=== PATIENT | female | born 2000 | race Caucasian/White ===

== ENCOUNTER 2019-04-09 07:49 | Emergency (ER) | payer SELFPAY ==
[2019-04-09 07:50] VITALS: BP 125/88; PULSE 70; RESP 18; TEMP 36.8; O2SAT 100
--- NOTE | 2019-04-09 07:53 | ED.ALLEREA ---
HPI - Allergic Reaction General Chief complaint: Skin/Abscess/Foreign Body Stated complaint: allergic reaction to meds/mrsa cyst Time Seen by Provider: 04/09/19 07:52 Source: patient Mode of arrival: ambulatory Limitations: no limitations History of Present Illness HPI narrative: Patient is a 18-year-old female. She states she has had multiple skin abscesses in the past. She states that she has had multiple I and D's in the past. She states that it has been cultured and it is positive for MRSA. She is here because she has a lesion on her forehead. She stated that on Thursday of this week she was given a prescription for Bactrim by another facility. She has been on Bactrim in the past. She states she woke up this morning and had swelling on the left side of her forehead and down into her left eye. She was concerned that potentially she is having a reaction to the Bactrim. She also states that she has been on MRSA eradication regimens in the past. She does use mupirocin. Has also done bleach baths. She does not have a primary care doctor. She does not have medical insurance. Related Data Previous Rx's Medication Instructions Recorded doxycycline hyclate 100 mg PO BID 5 Days #10 tab 04/09/19 Allergies Allergy/AdvReac Type Severity Reaction Status Date / Time Pertussis Vaccines Allergy Mild Verified 04/09/19 07:58 [PERTUSSIS VACCINES] Review of Systems Constitutional Denies fatigue and Denies headache(s) Eyes Comments: Swelling over the left eye ENT Ears, Nose, Mouth, and Throat: Denies headache(s) Cardiovascular Denies chest pain and Denies dyspnea Respiratory Denies dyspnea Gastrointestinal Gastrointestinal: Denies abdominal pain Integumentary/Breasts Reports rash (Left forehead) Neurologic Denies behavioral changes and Denies headache(s) Psychiatric Denies behavioral changes Endocrine Denies fatigue Hematologic/Lymphatic Denies easy bleeding and Denies easy bruising PFSH Medical History MRSA (methicillin resistant staph aureus) culture positive (Acute) Social History Smoking Status: Former smoker Social History Smoking Status: Former smoker Exam Initial Vital Signs Initial Vital Signs: Vital Signs Temperature 98.3 F 06/15/19 07:50 Pulse Rate 70 04/09/19 07:50 Respiratory Rate 18 04/09/19 07:50 Blood Pressure 125/88 04/09/19 07:50 Pulse Oximetry 100 04/09/19 07:50 Const General: cooperative, well developed, well groomed and No acute distress Orientation: alert and awake [facility] Head: other (Swelling to left forehead) Eyes Other: Left eye unremarkable. Does have some mild swelling of the left upper eyelid. Resp Effort & Inspection: normal respiratory effort Cardio Rate: regular rate Skin Other: Patient with a 1/2 cm white abscess to the left forehead. Has minimal surrounding erythema. Does have swelling of the left side of the forehead that extends past midline and down to the upper eyelid. Neuro General: alert and awake Cognition: normal cognition Speech: speech normal Extrem General: capillary refill normal Procedures Abscess I/D Site: face Side (if applicable): left Local Anesthetic: lidocaine 1% and with bicarb Amount of anesthesia used (mL): 2 Technique: incised with #11 blade Irrigation: No Packing used?: none Course Vital Signs - 8 hr 04/09/19 07:50 Temperature 98.3 F Pulse Rate 70 Respiratory Rate 18 Blood Pressure 125/88 Pulse Oximetry 100 MDM - Allergic Reaction MDM Narrative Medical decision making narrative: Patient does have a small area of an abscess on her left forehead which was I&D. Patient has had this done multiple times in the past. Informed her that there would most likely be a scar over this area. She does have swelling on the left side of her forehead. I suspect this is secondary to the infection not an allergic reaction to the Bactrim. She has been on this medication in the past. Informed her to continue with the Bactrim. We discussed return precautions and follow-up instructions with regard to the I and D. she was given a prescription for doxycycline. Since this infection is on her face and she is having some swelling informed her that if her symptoms do not start to improve over the next couple days that she should stop taking the Bactrim and start taking the doxycycline. She was given the phone number for the health complex human resources manager here at the hospital to help with finding a primary provider. She is already on a read occasion treatment for MRSA. Both her and family expressed understanding and agreement with plan. Discharge Plan Departure Patient Disposition: Home Clinical Impression: Abscess of skin or subcutaneous tissue Qualifiers: Site of cutaneous abscess: face Qualified Code(s): L02.01 - Cutaneous abscess of face Instructions: DI for Skin Abscess, DI for Incision and Drainage Activity Restrictions/Additional Instructions: I do recommend that you continue with the antibiotic that your currently taking. Hold on filling the prescription you were given today for the time being. If your symptoms worsen over the next couple days please stop taking your current antibiotic and fill this prescription and start taking it as directed. On Thursday you can call the Health resources coordinator at [phone]. Return to the emergency department for any new or worsening symptoms Prescriptions: New doxycycline hyclate 100 mg tablet 100 mg PO BID 5 Days Qty: 10 RF: 0
== END 2019-04-09 08:31 | disposition home or self-care (01) ==
PROVIDERS: Emergency Provider Emergency Medicine
DX: L02.01 Cutaneous abscess of face (principal)
CPT/HCPCS: 10060; 99282; 99283

== ENCOUNTER 2020-05-30 15:58 | Emergency (ER) | payer SELFPAY ==
[2020-05-30] VITALS (8 sets, daily range): BP systolic 101–118; BP diastolic 57–66; PULSE 59–94; RESP 16; TEMP 37.3–37.7; O2SAT 97–98; BMI 26.6
[2020-05-30 17:04] LABS: Add Manual Diff / Slide Review NO; Basophils Absolute Auto 100 /uL (0-100); Basophils Percent Auto 0.4 % (0-2); Eosinophils Absolute Auto 100 /uL (0-450); Eosinophils Percent Auto 1.1 % (2-4); Hematocrit 40.8 % (36-46); Hemoglobin 13.8 g/dL (12.0-16.0); Lymphocytes Absolute Auto 1100 /uL (1100-4500); Lymphocytes Percent Auto 8.6 % (25-40); Mean Corpuscular HGB Conc 33.9 % (30-36); Mean Corpuscular Hemoglobin 32.3 PG (26-34); Mean Corpuscular Volume 95.5 fL (80-100); Monocytes Absolute Auto 600 /uL (0-900); Monocytes Percent Auto 4.9 % (3-14); Neutrophils Absolute Auto 11000 /uL (1500-7000); Platelet Count 319 X10^3/uL (150-400); Red Blood Cell Count 4.27 X10^6/uL (4.0-5.2); Red Cell Distribution Width 13.1 % (11.6-14.8)
[2020-05-30] MEDS: SODIUM CHLORIDE 0.9% 1,000 ML 1000 ML IV (17:08)
[2020-05-30] MEDS: KETOROLAC 60 MG/2 ML VIAL 15 MG IV (17:08)
[2020-05-30] MEDS: ACETAMINOPHEN 325 MG TABLET 650 MG PO (17:09)
[2020-05-30 17:23] LABS: Lactate (Lactic Acid) 2.1 mmol/L (0.7-2.1)
[2020-05-30 17:24] LABS: Alanine Aminotransferase 22 IU/L (<35); Albumin 4.2 g/dL (3.5-5.0); Albumin Globulin Ratio 1.6 (1.0-2.8); Alkaline Phosphatase 38 U/L (38-126); Aspartate Aminotransferase 35 IU/L (14-36); BUN Creatinine Ratio 15.7 (6-22); Bilirubin Total 0.6 mg/dL (0.2-1.3); Blood Urea Nitrogen 11 mg/dL (7-17); Carbon Dioxide 24 mmol/L (22-32); Chloride 101 mmol/L (98-107); Estimated Glomerular Filt Rate > 60.0 mL/min (>60); Globulin 2.6 g/dL (1.7-4.1); Glucose 106 mg/dL (70-100); HEMOLYSIS 50 (0-50); Lipase 33 U/L (23-300); Potassium 3.8 mmol/L (3.4-5.1); Sodium 135 mmol/L (137-145); Total Protein 6.8 g/dL (6.3-8.2)
--- NOTE | 2020-05-30 17:25 | ED_ITS ---
HPI - Abdominal Pain <[facility] [place] [facility] - Last Filed: 05/30/20 22:24> General Chief Complaint: Abdominal Pain Stated Complaint: vomiting blood and stomach acid Time Seen by Provider: 05/30/20 16:43 Source: patient Mode of arrival: Ambulatory Limitations: no limitations History of Present Illness HPI narrative: This is a 19-year-old female, smoker, who had taken misoprostol on Thursday as an elective [facility] with a friend with chief complain of right upper and right lower quadrant pain with nausea and vomiting and elevated temperature with Tmax of 100 at home. This is and she about about 7.5 week EGA. Patient reports nausea started last night and had about 4 episodes of vomiting with mostly bile and small amount of blood. She had taken Zofran 4 mg ODT before coming into ED. patient reports has been passing clots and tissue like material since the misoprostol and has been changing Stacy pad as about every 2 hours. Patient reports pain is 5 to 6/10 and at home she almost passed out because pain was so bad. Patient reports she feels very dehydrated. Patient denies urinary symptoms such as urgency, frequency, dysuria. Patient denies chest pain, breathing difficulty. Related Data Previous Rx's Medication Instructions Recorded cephalexin [Keflex] 500 mg PO BID 7 Days #14 cap 05/30/20 ondansetron 4 mg PO Q6-8H PRN #10 tab 05/30/20 Allergies Allergy/AdvReac Type Severity Reaction Status Date / Time Pertussis Vaccines Allergy Mild Verified 04/09/19 07:58 [PERTUSSIS VACCINES] Review of Systems <[facility] [place] [facility] - Last Filed: 05/30/20 22:24> Review of Systems Narrative: General: See HPI HEENT: Denies sinus pain, ear pain, sore throat, difficulty swallowing, dizziness. Respiratory: Denies dyspnea, cough, wheezing, hemoptysis, sputum. Cardiovascular: Denies chest pain, palpitations, orthopnea, edema. Gastrointestinal: See HPI : See HPI Musculoskeletal: Denies weakness, joint pain or bony pain. Skin: Denies rash, skin lesions, or other. Neurologic: Denies weakness, headache, numbness, change in speech, confusion, seizures, incoordination. Psychiatric: No concerning psychosocial issues. 12-point review of systems is negative except for those stated above. Patient History <BERENICE Thorpe - Last Filed: 05/30/20 22:24> Medical History MRSA (methicillin resistant staph aureus) culture positive (Acute) Surgical History S/P laparoscopic procedure (Acute) Social History (Updated 05/30/20 @ 17:39 by BERENICE Thorpe) Smoking Status: Current every day smoker substance use type: marijuana Substance Use Type: does not use Exam <BERENICE Thorpe - Last Filed: 05/30/20 22:24> Narrative Exam Narrative: GEN: Alert, oriented x 3, well appearing and nourished, and in no acute distress. Head: Normal cephalic, atraumatic. No scalp or temporal tenderness, palpable mass or rash. EYES: Pupils are equal, round, and reactive to light and accommodation. Extraocular muscles are intact bilaterally. There is no subconjunctival hemorrhage, exudate and sclera non-icteric. ENT: Hearing grossly intact. Nose without bleeding, purulent discharge or deviation. Mucous membrane dry, no mucosal lesion. Throat without erythema, tonsillar hypertrophy or exudate. Uvula in midline, airway patent. Neck: Trachea in midline. No JVD, non-tender without lymphadenopathy. No masses or thyroid megaly. Supple, non-tender and no meningeal signs. CARDIAC: Normal regular rate and rhythm without murmurs, gallops, or rubs. No chest wall tenderness. No peripheral edema, cyanosis or pallor. Capillary refill is less than 2 seconds. RESPIRATORY: Lungs are clear to auscultate bilaterally. No cough, wheezes, rales, or rhonchi. No stridor, respiratory distress, increase work of breathing, or accessary muscle used. ABD: Abdomen soft and non-distended. Mild tenderness to palpate in right lower quadrant. No Payton's sign. No guarding or rebound tenderness to palpate. Bowel sounds are normal in all 4 quadrants. There is no palpable masses or organomegaly. EXT: Full painless ROM of all extremities with no loss of sensation, strength, effusion or edema. SKIN: Warm, dry, normal color for patient. No erythema, lesions or rash over visible areas. BACK: Nontender without deformity or crepitance. No flank tenderness. NEUROLOGICAL: Alert and oriented to place, time and person. Sensation and motor function intact bilaterally. No facial droops, dysphasia. PSYCHIATRIC: Good judgement and reason, without hallucinations, abnormal affect or abnormal behaviors during the examination. Initial Vital Signs Initial Vital Signs: Vital Signs Temperature 99.9 F H 05/30/20 16:17 Pulse Rate 94 H 05/30/20 16:17 Respiratory Rate 16 05/30/20 16:17 Blood Pressure 118/61 05/30/20 16:17 Pulse Oximetry 97 05/30/20 16:17 External Female Exam: normal external appearance and normal appearance of the urethra Speculum Exam - Vagina: normal appearance of the vagina, no lacerations, no lesions, vaginal bleeding and nontender Speculum Exam - Cervix: normal appearance of the cervix, cervical os open (maroo n color blood mostly w/o clots), no masses and nontender Bimanual Exam- Vagina & Uterus: normal bimanual exam, No tender and non-tender Bimanual Exam- Adnexa, other: no masses OB/External & Speculum: cervical os open (maroon color blood mostly w/o clots) and vaginal bleeding <Regi Nobles MD - Last Filed: 05/31/20 01:16> Initial Vital Signs Initial Vital Signs: Vital Signs Temperature 99.9 F H 05/30/20 16:17 Pulse Rate 94 H 05/30/20 16:17 Respiratory Rate 16 05/30/20 16:17 Blood Pressure 118/61 05/30/20 16:17 Pulse Oximetry 97 05/30/20 16:17 Scores <GAUTAM ThorpeP - Last Filed: 05/30/20 22:24> GCS Adams coma scale eye opening: Spontaneous Adams coma scale verbal response: Orientated Adams coma scale motor response: Obey commands Adriane coma scale total score: 15 qSOFA Altered Mental Status (GCS <15): No Respiratory rate greater than/equal to 22: No Systolic blood pressure less than or equal to 100: No qSOFA Total: 0 0-1 Not High Risk 1-3 High risk Course <GAUTAM ThorpeP - Last Filed: 05/30/20 22:24> Orders Ordered: ED Orders 05/30/20 17:28 US pelvic complete Stat 05/30/20 17:35 Urinalysis and Microscopic Stat Urine Culture Stat Discontinued Medications Acetaminophen (Tylenol) 650 mg PO NOW ONE Stop: 05/30/20 16:57 Last Admin: 05/30/20 17:09 Dose: 650 mg Documented by: ELDON Sodium Chloride (Normal Saline 0.9%) 1,000 mls @ 1,000 mls/hr IV BOLUS ONE Stop: 05/30/20 17:55 Last Infusion: 05/30/20 18:42 Dose: 0 mls/hr Documented by: Admin: 05/30/20 17:08 Dose: 1,000 mls/hr Documented by: ELDON Ketorolac Tromethamine (Toradol) 15 mg IV NOW ONE Stop: 05/30/20 16:57 Last Admin: 05/30/20 17:08 Dose: 15 mg Documented by: ELDON Ondansetron HCl (Zofran) 4 mg IV NOW ONE Stop: 05/30/20 17:13 Last Admin: 05/30/20 17:34 Dose: 4 mg Documented by: ELDON Pantoprazole Sodium (Protonix) 40 mg IV NOW ONE Stop: 05/30/20 17:12 Last Admin: 05/30/20 17:34 Dose: 40 mg Documented by: ELDON Reevaluation(s) Reevaluation #1: The patient reports pain and nausea much improved. Time: 18:45 Consultations Consultation #1: Dr. Nobles staffed with the patient on physical finding, labs and US test result. Time: 19:45 Vital Signs Vital signs: Vital Signs - 8 hr 05/30/20 17:21 05/30/20 17:30 05/30/20 18:00 Temperature Pulse Rate 78 76 70 Blood Pressure 108/61 111/63 Pulse Oximetry 98 97 98 05/30/20 18:30 05/30/20 18:31 05/30/20 19:00 Temperature Pulse Rate 66 82 59 L Blood Pressure 101/57 L 105/66 Pulse Oximetry 97 97 98 05/30/20 19:20 Temperature 99.2 F Pulse Rate Blood Pressure Pulse Oximetry <Regi Nobles MD - Last Filed: 05/31/20 01:16> Orders Ordered: ED Orders 05/30/20 17:28 US pelvic complete Stat 05/30/20 17:35 Urinalysis and Microscopic Stat Urine Culture Stat Discontinued Medications Acetaminophen (Tylenol) 650 mg PO NOW ONE Stop: 05/30/20 16:57 Last Admin: 05/30/20 17:09 Dose: 650 mg Documented by: ELDON Sodium Chloride (Normal Saline 0.9%) 1,000 mls @ 1,000 mls/hr IV BOLUS ONE Stop: 05/30/20 17:55 Last Infusion: 05/30/20 18:42 Dose: 0 mls/hr Documented by: Admin: 05/30/20 17:08 Dose: 1,000 mls/hr Documented by: ELDON Ketorolac Tromethamine (Toradol) 15 mg IV NOW ONE Stop: 05/30/20 16:57 Last Admin: 05/30/20 17:08 Dose: 15 mg Documented by: ELDON Ondansetron HCl (Zofran) 4 mg IV NOW ONE Stop: 05/30/20 17:13 Last Admin: 05/30/20 17:34 Dose: 4 mg Documented by: ELDON Pantoprazole Sodium (Protonix) 40 mg IV NOW ONE Stop: 05/30/20 17:12 Last Admin: 05/30/20 17:34 Dose: 40 mg Documented by: ELDON Vital Signs Vital signs: Vital Signs - 8 hr 05/30/20 17:21 05/30/20 17:30 05/30/20 18:00 Temperature Pulse Rate 78 76 70 Blood Pressure 108/61 111/63 Pulse Oximetry 98 97 98 05/30/20 18:30 05/30/20 18:31 05/30/20 19:00 Temperature Pulse Rate 66 82 59 L Blood Pressure 101/57 L 105/66 Pulse Oximetry 97 97 98 05/30/20 19:20 Temperature 99.2 F Pulse Rate Blood Pressure Pulse Oximetry MDM - Abdominal Pain <Cameron BERENICE Neal - Last Filed: 05/30/20 22:24> Differential Diagnosis Differential diagnosis: Likely abdominal pain, acute appendicitis and other (Gastritis, Marjorie Hooker tear, pancreatitis, retained product of , sepsis) Medical Records Attestation: I reviewed the patient's medical records. Lab Data Attestation: I reviewed the patient's lab results. Result diagrams: 05/30/20 16:00 05/30/20 16:00 Labs: Lab Results 05/30/20 05/30/20 05/30/20 Range/Units 16:00 16:00 16:00 WBC 13.0 H (4.5-11.0) X10^3/uL RBC 4.27 (4.0-5.2) X10^6/uL Hgb 13.8 (12.0-16.0) g/dL Hct 40.8 (36-46) % MCV 95.5 (80-100) fL MCH 32.3 (26-34) PG MCHC 33.9 (30-36) % RDW 13.1 (11.6-14.8) % Plt Count 319 (150-400) X10^3/uL Neut % (Auto) 85.0 H (50-75) % Lymph % (Auto) 8.6 L (25-40) % Imperial % (Auto) 4.9 (3-14) % Eos % (Auto) 1.1 L (2-4) % Baso % (Auto) 0.4 (0-2) % Neut # (Auto) 36914 H (1368-1691) /uL Lymph # (Auto) 1100 (8253-2433) /uL Imperial # (Auto) 600 (0-900) /uL Eos # (Auto) 100 (0-450) /uL Baso # (Auto) 100 (0-100) /uL Sodium 135 L (137-145) mmol/L Potassium 3.8 (3.4-5.1) mmol/L Chloride 101 (98-107) mmol/L Carbon Dioxide 24 (22-32) mmol/L BUN 11 (7-17) mg/dL Creatinine 0.70 (0.52-1.04) mg/dL Estimated GFR > 60.0 (>60) mL/min BUN/Creatinine Ratio 15.7 (6-22) Glucose 106 H (70-100) mg/dL Lactate (0.7-2.1) mmol/L Calcium 9.0 (8.4-10.2) mg/dL Total Bilirubin 0.6 (0.2-1.3) mg/dL AST 35 (14-36) IU/L ALT 22 (<35) IU/L Alkaline Phosphatase 38 (38-126) U/L Total Protein 6.8 (6.3-8.2) g/dL Albumin 4.2 (3.5-5.0) g/dL Globulin 2.6 (1.7-4.1) g/dL Albumin/Globulin Ratio 1.6 (1.0-2.8) Lipase 33 (23-300) U/L Procalcitonin < 0.05 (<0.5) ng/mL Urine Color Urine Appearance Urine pH (4.5-8.0) Ur Specific Marion (1.000-1.035) Urine Protein (Negative) Urine Glucose (UA) (Negative) g/dL Urine Ketones (NEGATIVE) Urine Occult Blood (Negative) Urine Nitrate (Negative) Urine Bilirubin (NEGATIVE) Urine Urobilinogen (0.2) E.U./dL Ur Leukocyte Esterase (NEGATIVE) Urine RBC (0-5/HPF) Urine WBC (0-5/HPF) Ur Squamous Epith Cells (0-5/HPF) Amorphous Sediment Urine Bacteria (None) Urine Mucus (Negative) Ur Culture Indicated? 05/30/20 05/30/20 Range/Units 16:00 17:35 WBC (4.5-11.0) X10^3/uL RBC (4.0-5.2) X10^6/uL Hgb (12.0-16.0) g/dL Hct (36-46) % MCV (80-100) fL MCH (26-34) PG MCHC (30-36) % RDW (11.6-14.8) % Plt Count (150-400) X10^3/uL Neut % (Auto) (50-75) % Lymph % (Auto) (25-40) % Imperial % (Auto) (3-14) % Eos % (Auto) (2-4) % Baso % (Auto) (0-2) % Neut # (Auto) (9442-5679) /uL Lymph # (Auto) (9879-2299) /uL Imperial # (Auto) (0-900) /uL Eos # (Auto) (0-450) /uL Baso # (Auto) (0-100) /uL Sodium (137-145) mmol/L Potassium (3.4-5.1) mmol/L Chloride (98-107) mmol/L Carbon Dioxide (22-32) mmol/L BUN (7-17) mg/dL Creatinine (0.52-1.04) mg/dL Estimated GFR (>60) mL/min BUN/Creatinine Ratio (6-22) Glucose (70-100) mg/dL Lactate 2.1 (0.7-2.1) mmol/L Calcium (8.4-10.2) mg/dL Total Bilirubin (0.2-1.3) mg/dL AST (14-36) IU/L ALT (<35) IU/L Alkaline Phosphatase (38-126) U/L Total Protein (6.3-8.2) g/dL Albumin (3.5-5.0) g/dL Globulin (1.7-4.1) g/dL Albumin/Globulin Ratio (1.0-2.8) Lipase (23-300) U/L Procalcitonin (<0.5) ng/mL Urine Color Red Urine Appearance Cloudy Urine pH 8.5 H (4.5-8.0) Ur Specific Marion 1.010 (1.000-1.035) Urine Protein 3+ H (Negative) Urine Glucose (UA) Trace H (Negative) g/dL Urine Ketones Negative (NEGATIVE) Urine Occult Blood 3+ H (Negative) Urine Nitrate Positive H (Negative) Urine Bilirubin Negative (NEGATIVE) Urine Urobilinogen 1.0 (0.2) E.U./dL Ur Leukocyte Esterase 2+ H (NEGATIVE) Urine RBC >100/hpf H (0-5/HPF) Urine WBC >100/hpf H (0-5/HPF) Ur Squamous Epith Cells 10-30 /hpf H (0-5/HPF) Amorphous Sediment 2+ Urine Bacteria Many (>30) H (None) Urine Mucus 2+ H (Negative) Ur Culture Indicated? Specimen cultured Imaging Data US-Pelvic: Radiologist's Impression: [address] [address] Ultrasound Report Signed Patient: Gino Cason#: [id number] : 2000Acct:[id number] Age/Sex: 19 / FDate of Service: 05/30/20 Loc: ED Accession Number: [id number] Procedure: US pelvic complete Ordering Provider: Cameron Neal PROCEDURE: US PELVIC COMPLETE INDICATIONS: FEVER/TAKEN MISOPROSTOL THURSDAY/VAGINAL BLEED/CLOTS TECHNIQUE: Real-time scanning was performed of the pelvic organs, with image documentation. Additional endovaginal scanning was necessary due to incomplete visualization of the adnexal and endometrial structures by transabdominal scanning. COMPARISON: [facility], , PELVIC COMPLETE, 08/18/2011, 18:56. FINDINGS: Transabdominal scanning: Limited scanning through the kidneys shows no hydronephrosis. No pathologic free abdominal or pelvic fluid. Endovaginal scanning: Uterus: Uterus measures 9.5 x 4.4 x 5.2 cm. The endometrium is thickened, measuring up to 2.1 cm in combined thickness. The endometrium is heterogeneous in appearance suggestive of internal blood products or clots. Ovaries: The right ovary measures 3.7 x 2.0 x 2.0 cm and the left ovary measures 3.2 x 1.7 x 1.8 cm. There is a thick-walled cyst in the right ovary measuring up to 1.6 cm likely representing a corpus luteal cyst. IMPRESSION: 1. Thickened heterogeneous endometrium suggestive of blood product. 2. Thick walled right ovarian cyst likely representing a corpus luteal cyst. Dictated by: Zaki Rice M.D. on 05/30/2020 at 18:41 Approved by: Zaki Rice M.D. on 05/30/2020 at 18:44 MDM Narrative Medical decision making narrative: This is a 19 year old female who had an elective termination by oral medication misoprostol 3 days ago and she has nausea since last night with vomiting for 4 times small amount of pinkish blood, low abdominal cramping with upper right upper quadrant pain with slightly elevated temperature at home up to 100 F. She has been passing blood, clots, and tissue like substance vaginally. Physical exam was unremarkable. Was soft to palpate without distension, tenderness to palpate, rebound tenderness. Pelvic exam without CC cervical motion tenderness or uterine tenderness. Os is slightly open and expelling mostly bloodly liquid with scant gracious tissue. No blood clots or purulent discharge appreciated. Patient tolerated pelvic exam well. Concerned for uterine infection from retained product of conception and pelvic US test was done. Endometrium was thickened measuring up to 2.1 cm but appears to be heterogeneous in appearance suggestive of internal blood products or clots. Also there is a thick walled cyst in right ovary measuring up to 1.6 cm. WBC count is 13.0 with slightly elevated neutrophil of 85%. qSOFA score was 0. Lactate was within normal of 2.1 (0.7-2.1) and negative procalcitonin indicating sepsis. Given patient had taken misoprostol recently, it is expected that she'll be bleeding for upto 2 weeks. UA test shows positive for urine nitrate and leukocyte esterase 2+ with WBC >100 and many urine bacteria. Urine cultures pending. Source of leukocytosis and mild elevated temperature could be UTI and the patient is treated with Keflex 500 mg b.i.d. 7 day course. Patient was treated with IV fluid, Tylenol, IV Toradol, Pantoprazole and zofran for patient's symptoms which has improved. Patient reports feeling much better shortly after. Findings were discussed with patient and discussed strict return precautions with worsening symptoms [facility] scheduled appointment until next week. Patient verbalized understanding and agreement with the treatment plan. Advised to take [id number] omeprazole to protect stomach with patient takes ibuprofen regularly to help with cramping pain or temperature. <Regi Nobles MD - Last Filed: 05/31/20 01:16> Lab Data Labs: Lab Results 05/30/20 05/30/20 05/30/20 Range/Units 16:00 16:00 16:00 WBC 13.0 H (4.5-11.0) X10^3/uL RBC 4.27 (4.0-5.2) X10^6/uL Hgb 13.8 (12.0-16.0) g/dL Hct 40.8 (36-46) % MCV 95.5 (80-100) fL MCH 32.3 (26-34) PG MCHC 33.9 (30-36) % RDW 13.1 (11.6-14.8) % Plt Count 319 (150-400) X10^3/uL Neut % (Auto) 85.0 H (50-75) % Lymph % (Auto) 8.6 L (25-40) % Imperial % (Auto) 4.9 (3-14) % Eos % (Auto) 1.1 L (2-4) % Baso % (Auto) 0.4 (0-2) % Neut # (Auto) 62303 H (0080-4625) /uL Lymph # (Auto) 1100 (5139-3713) /uL Imperial # (Auto) 600 (0-900) /uL Eos # (Auto) 100 (0-450) /uL Baso # (Auto) 100 (0-100) /uL Sodium 135 L (137-145) mmol/L Potassium 3.8 (3.4-5.1) mmol/L Chloride 101 (98-107) mmol/L Carbon Dioxide 24 (22-32) mmol/L BUN 11 (7-17) mg/dL Creatinine 0.70 (0.52-1.04) mg/dL Estimated GFR > 60.0 (>60) mL/min BUN/Creatinine Ratio 15.7 (6-22) Glucose 106 H (70-100) mg/dL Lactate (0.7-2.1) mmol/L Calcium 9.0 (8.4-10.2) mg/dL Total Bilirubin 0.6 (0.2-1.3) mg/dL AST 35 (14-36) IU/L ALT 22 (<35) IU/L Alkaline Phosphatase 38 (38-126) U/L Total Protein 6.8 (6.3-8.2) g/dL Albumin 4.2 (3.5-5.0) g/dL Globulin 2.6 (1.7-4.1) g/dL Albumin/Globulin Ratio 1.6 (1.0-2.8) Lipase 33 (23-300) U/L Procalcitonin < 0.05 (<0.5) ng/mL Urine Color Urine Appearance Urine pH (4.5-8.0) Ur Specific Marion (1.000-1.035) Urine Protein (Negative) Urine Glucose (UA) (Negative) g/dL Urine Ketones (NEGATIVE) Urine Occult Blood (Negative) Urine Nitrate (Negative) Urine Bilirubin (NEGATIVE) Urine Urobilinogen (0.2) E.U./dL Ur Leukocyte Esterase (NEGATIVE) Urine RBC (0-5/HPF) Urine WBC (0-5/HPF) Ur Squamous Epith Cells (0-5/HPF) Amorphous Sediment Urine Bacteria (None) Urine Mucus (Negative) Ur Culture Indicated? 05/30/20 05/30/20 Range/Units 16:00 17:35 WBC (4.5-11.0) X10^3/uL RBC (4.0-5.2) X10^6/uL Hgb (12.0-16.0) g/dL Hct (36-46) % MCV (80-100) fL MCH (26-34) PG MCHC (30-36) % RDW (11.6-14.8) % Plt Count (150-400) X10^3/uL Neut % (Auto) (50-75) % Lymph % (Auto) (25-40) % Imperial % (Auto) (3-14) % Eos % (Auto) (2-4) % Baso % (Auto) (0-2) % Neut # (Auto) (8418-4588) /uL Lymph # (Auto) (0563-9702) /uL Imperial # (Auto) (0-900) /uL Eos # (Auto) (0-450) /uL Baso # (Auto) (0-100) /uL Sodium (137-145) mmol/L Potassium (3.4-5.1) mmol/L Chloride (98-107) mmol/L Carbon Dioxide (22-32) mmol/L BUN (7-17) mg/dL Creatinine (0.52-1.04) mg/dL Estimated GFR (>60) mL/min BUN/Creatinine Ratio (6-22) Glucose (70-100) mg/dL Lactate 2.1 (0.7-2.1) mmol/L Calcium (8.4-10.2) mg/dL Total Bilirubin (0.2-1.3) mg/dL AST (14-36) IU/L ALT (<35) IU/L Alkaline Phosphatase (38-126) U/L Total Protein (6.3-8.2) g/dL Albumin (3.5-5.0) g/dL Globulin (1.7-4.1) g/dL Albumin/Globulin Ratio (1.0-2.8) Lipase (23-300) U/L Procalcitonin (<0.5) ng/mL Urine Color Red Urine Appearance Cloudy Urine pH 8.5 H (4.5-8.0) Ur Specific Marion 1.010 (1.000-1.035) Urine Protein 3+ H (Negative) Urine Glucose (UA) Trace H (Negative) g/dL Urine Ketones Negative (NEGATIVE) Urine Occult Blood 3+ H (Negative) Urine Nitrate Positive H (Negative) Urine Bilirubin Negative (NEGATIVE) Urine Urobilinogen 1.0 (0.2) E.U./dL Ur Leukocyte Esterase 2+ H (NEGATIVE) Urine RBC >100/hpf H (0-5/HPF) Urine WBC >100/hpf H (0-5/HPF) Ur Squamous Epith Cells 10-30 /hpf H (0-5/HPF) Amorphous Sediment 2+ Urine Bacteria Many (>30) H (None) Urine Mucus 2+ H (Negative) Ur Culture Indicated? Specimen cultured Discharge Plan Departure Patient Disposition: Home Clinical Impression: Miscarriage Nausea & vomiting Qualifiers: Vomiting type: unspecified Vomiting Intractability: non-intractable Qualified Code(s): R11.2 - Nausea with vomiting, unspecified Discharge Date/Time: 05/30/20 20:07 Instructions: DI for Miscarriage, Nausea and Vomiting-Adult Activity Restrictions/Additional Instructions: You have been diagnosed with [abdominal cramping, nausea and vomiting, elective miscarriage after the misoprostol. Slightly elevated WBC to 13. No signs of sepsis per physical and blood tests. It appears to be you have UTI as well. The elevated temperature may related to this. Please start taking antibiotic medication for next 7 days. Urine culture is pending and you will receive a phone call from us if it requires different antibiotic medications.]. What to do: *Take your medications as directed. Take Keflex antibiotic medication twice a day for next 7 days. Zofran as needed for nausea. Hydrate adequately after nausea has improved. Please take [id number] Tylenol and or Motrin as needed for discomfort and fever. Motrin take it with food. This medication has been transmitted to [facility] in [place]. *Follow up with your primary care provider in 2-3 days, call for an appointment. Let them know you were seen in the ED and that we asked you to be seen in follow up. *Return to ED if you have any new, worsening, or concerning symptoms, such as [worsening pain, fever, chills, unable to tolerate fluids, her fainting episodes, chest pain, breathing difficulty, or any acute concerns]. Prescriptions: New ondansetron 4 mg tablet,disintegrating 4 mg PO Q6-8H PRN (Reason: nausea and vomiting) Qty: 10 RF: 0 cephalexin [Keflex] 500 mg capsule 500 mg PO BID 7 Days Qty: 14 RF: 0 Referrals: [facility] [Outside] <Regi Nobles MD - Last Filed: 05/31/20 01:16> Cosign ED Attending Cosignature Attestation: I was immediately available in the department for consultation throughout this patient's visit. I agree with documentation as above. Regi Nobles MD
--- NOTE | 2020-05-30 17:28 | DI.US.S_ITS ---
PROCEDURE: US PELVIC COMPLETE INDICATIONS: FEVER/TAKEN MISOPROSTOL THURSDAY/VAGINAL BLEED/CLOTS TECHNIQUE: Real-time scanning was performed of the pelvic organs, with image documentation. Additional endovaginal scanning was necessary due to incomplete visualization of the adnexal and endometrial structures by transabdominal scanning. COMPARISON: [facility], , PELVIC COMPLETE, 08/18/2011, 18:56. FINDINGS: Transabdominal scanning: Limited scanning through the kidneys shows no hydronephrosis. No pathologic free abdominal or pelvic fluid. Endovaginal scanning: Uterus: Uterus measures 9.5 x 4.4 x 5.2 cm. The endometrium is thickened, measuring up to 2.1 cm in combined thickness. The endometrium is heterogeneous in appearance suggestive of internal blood products or clots. Ovaries: The right ovary measures 3.7 x 2.0 x 2.0 cm and the left ovary measures 3.2 x 1.7 x 1.8 cm. There is a thick-walled cyst in the right ovary measuring up to 1.6 cm likely representing a corpus luteal cyst. IMPRESSION: 1. Thickened heterogeneous endometrium suggestive of blood product. 2. Thick walled right ovarian cyst likely representing a corpus luteal cyst. Dictated by: Zaki Rice M.D. on 05/30/2020 at 18:41 Approved by: Zaki Rice M.D. on 05/30/2020 at 18:44
[2020-05-30] MEDS: PANTOPRAZOLE 40 MG VIAL IV (17:34)
[2020-05-30] MEDS: ONDANSETRON 4 MG/2 ML INJ IV (17:34)
[2020-05-30 17:41] LABS: Procalcitonin < 0.05 ng/mL (<0.5)
[2020-05-30 17:45] LABS: Bilirubin Urine UA NEGATIVE (NEGATIVE); Color Urine UA RED; Glucose Urine UA TRACE g/dL (Negative); Ketones Urine UA NEGATIVE (NEGATIVE); Leukocyte Esterase Urine UA 2+ (NEGATIVE); Nitrite Urine UA POSITIVE (Negative); Occult Blood Urine UA 3+ (Negative); Protein Urine UA 3+ (Negative)
[2020-05-30 17:51] LABS: Appearance Urine UA CLOUDY; pH Urine UA 8.5 (4.5-8.0)
[2020-05-30 17:53] LABS: Amorphous Sediment Urine 2+; RBC Urine >100/HPF (0-5/HPF); Squamous Epithelial Cell Urine 10-30 /HPF (0-5/HPF); WBC Urine >100/HPF (0-5/HPF)
[2020-05-30 17:54] LABS: Bacteria Urine Many (>30); Culture Indicated Urine Specimen Cultured; Mucus Urine 2+ (Negative)
== END 2020-05-30 20:07 | disposition home or self-care (01) ==
PROVIDERS: Emergency Provider Nurse Practitioner Family
DX: O03.9 Complete or unspecified spontaneous abortion without complication (principal); R11.2 Nausea with vomiting, unspecified; R50.9 Fever, unspecified; D72.829 Elevated white blood cell count, unspecified
CPT/HCPCS: 36415; 76830; 76856; 80053; 81001; 83605; 83690; 84145; 85025; 87086; 96361; 96374; 96375; 99284; 99285; C9113; J1885; J2405

== ENCOUNTER 2020-12-05 10:30 | Emergency (ER) | payer OTHER, MEDICAID, SELFPAY ==
[2020-12-05 10:35] VITALS: BP 128/72; PULSE 63; RESP 16; TEMP 36.5; O2SAT 100; BMI 29.2
--- NOTE | 2020-12-05 11:11 | ED_ITS ---
HPI - <DALTON Santos- - Last Filed: 12/05/20 13:53> General Chief complaint: Urogenital-Female Stated complaint: incomplete miscarriage 12 wks/cramping/spot x4wks Time Seen by Provider: 12/05/20 10:47 Source: patient and family Mode of arrival: Ambulatory Limitations: no limitations History of Present Illness HPI Narrative: The patient is a 20-year-old female current smoker who presents with a chief complaint of an incomplete with concern for retained products. She states that [facility] She states that she thinks she was about 6 weeks along. She states she had follow-up with them by telehealth and they encouraged her to take a test to 5 weeks after to make sure that the hormones were gone, which she did last night and was positive. Denies any vaginal discharge or concerns about sexually transmitted infections as she was ?just tested. She states that she did not bleed much after taking her 2nd dose few weeks ago. However she had light cramping and spotting last week. She did use of control patch for 3 weeks, which she took off last night after she had her positive urine test. She states that she never had an ultrasound to make sure she had ?cleared everything. Related Data Previous Rx's Medication Instructions Recorded oxycodone-acetaminophen [Percocet] 1 tab PO Q4-6H PRN #10 tab 12/06/20 Allergies Allergy/AdvReac Type Severity Reaction Status Date / Time Pertussis Vaccines Allergy Mild Verified 12/05/20 10:40 [PERTUSSIS VACCINES] Review of Systems <LIAM Santos - Last Filed: 12/05/20 13:53> Review of Systems Narrative: GENERAL: Denies chills, fatigue, malaise, fever, sweats. HEENT: Denies sinus pain, ear pain, sore throat, difficulty swallowing, dizziness. RESPIRATORY: Denies dyspnea, cough, wheezing, hemoptysis, sputum. CARDIOVASCULAR: Denies chest pain, palpitations, orthopnea, edema, GASTROINTESTINAL: See HPI : See HPI MUSCULOSKELETAL: denies weakness, joint pain, or bony pain SKIN: Denies rash, skin lesions, or other NEUROLOGIC: Denies weakness, headache, numbness, change in speech, confusion, seizures, incoordination. PSYCHIATRIC: No concerning psychosocial issues. 12 point review of systems is negative except for those stated above Exam <LUKAS Santos - Last Filed: 12/05/20 13:53> Narrative Exam Narrative: GENERAL: This is a well-nourished, well-developed patient, in no acute distress HEAD: Atraumatic. Normocephalic. No temporal or scalp tenderness. EYES: Pupils equal round and reactive. Extraocular motions intact. No scleral icterus. No injection or drainage. ENT: Nose without bleeding, purulent drainage or septal hematoma. Wearing a mask Airway patent. NECK: Trachea midline. No JVD or lymphadenopathy. Supple, nontender, no meningeal signs. CARDIOVASCULAR: Regular rate and rhythm RESPIRATORY: Clear to auscultation. Breath sounds equal bilaterally. No wheezes, rales, or rhonchi. No cough. No increased respiratory effort. No accessory muscle use. GASTROINTESTINAL: Abdomen soft, diffuse suprapubic tenderness to palpation, nondistended. No hepato-splenomegaly, or palpable masses. No guarding. EXTREMITIES: No clubbing, cyanosis, or edema. No joint tenderness, effusion, or edema noted. BACK: Nontender without deformity or crepitance. No flank tenderness. NEURO: AOx3. SKIN: No rash or erythema on visible skin Initial Vital Signs Initial Vital Signs: Vital Signs Temperature 97.7 F 12/05/20 10:35 Pulse Rate 63 12/05/20 10:35 Respiratory Rate 16 12/05/20 10:35 Blood Pressure 128/72 12/05/20 10:35 Pulse Oximetry 100 12/05/20 10:35 <Katelynn Jenkins DO - Last Filed: 12/06/20 19:08> Initial Vital Signs Initial Vital Signs: Vital Signs Temperature 97.7 F 12/05/20 10:35 Pulse Rate 63 12/05/20 10:35 Respiratory Rate 16 12/05/20 10:35 Blood Pressure 128/72 12/05/20 10:35 Pulse Oximetry 100 12/05/20 10:35 Scores <LUKAS Santos - Last Filed: 12/05/20 13:53> GCS Adriane coma scale eye opening: Spontaneous Adriane coma scale verbal response: Orientated Adriane coma scale motor response: Obey commands Adriane coma scale total score: 15 Course <LUKAS Santos - Last Filed: 12/05/20 13:53> Orders Ordered: ED Orders 12/05/20 11:15 US OB <= 14 weeks fetus Stat 12/05/20 11:26 ABO RH Type Stat Complete Blood Count AUTO DIFF Stat Comprehensive Metabolic Panel Stat HCG Quantitative /Beta subunit Stat 12/05/20 12:13 COVID19 Stat Vital Signs Vital signs: Vital Signs - 8 hr 12/05/20 10:35 12/05/20 13:17 12/05/20 13:22 Temperature 97.7 F Pulse Rate 63 70 68 Respiratory Rate 16 14 Blood Pressure 128/72 122/71 122/71 Pulse Oximetry 100 100 100 <Katelynn Jenkins DO - Last Filed: 12/06/20 19:08> Orders Ordered: ED Orders 12/05/20 11:15 US OB <= 14 weeks fetus Stat 12/05/20 11:26 ABO RH Type Stat Complete Blood Count AUTO DIFF Stat Comprehensive Metabolic Panel Stat HCG Quantitative /Beta subunit Stat 12/05/20 12:13 COVID19 Stat Vital Signs Vital signs: Vital Signs - 8 hr 12/05/20 10:35 12/05/20 13:17 12/05/20 13:22 Temperature 97.7 F Pulse Rate 63 70 68 Respiratory Rate 16 14 Blood Pressure 128/72 122/71 122/71 Pulse Oximetry 100 100 100 MDM - OB/Uterine Contractions <LUKAS Santos - Last Filed: 12/05/20 13:53> Lab Data Attestation: I reviewed the patient's lab results. Result diagrams: 12/05/20 11:26 12/05/20 11:26 Labs: Lab Results 12/05/20 12/05/20 12/05/20 Range/Units 11:26 11:26 11:26 WBC 6.1 (4.5-11.0) X10^3/uL RBC 4.38 (4.0-5.2) X10^6/uL Hgb 13.4 (12.0-16.0) g/dL Hct 41.1 (36-46) % MCV 93.9 (80-100) fL MCH 30.6 (26-34) PG MCHC 32.6 (30-36) % RDW 13.1 (11.6-14.8) % Plt Count 283 (150-400) X10^3/uL Neut % (Auto) 59.1 (50-75) % Lymph % (Auto) 30.4 (25-40) % [place] % (Auto) 6.2 (3-14) % Eos % (Auto) 3.9 (2-4) % Baso % (Auto) 0.4 (0-2) % Neut # (Auto) 3600 (1793-4127) /uL Lymph # (Auto) 1900 (9165-7313) /uL [place] # (Auto) 400 (0-900) /uL Eos # (Auto) 200 (0-450) /uL Baso # (Auto) 0 (0-100) /uL Sodium 136 L (137-145) mmol/L Potassium 4.1 (3.4-5.1) mmol/L Chloride 105 (98-107) mmol/L Carbon Dioxide 26 (22-32) mmol/L BUN 8 (7-17) mg/dL Creatinine 0.60 (0.52-1.04) mg/dL Estimated GFR > 60.0 (>60) mL/min BUN/Creatinine Ratio 13.3 (6-22) Glucose 79 (70-100) mg/dL Calcium 9.2 (8.4-10.2) mg/dL Total Bilirubin 0.5 (0.2-1.3) mg/dL AST 29 (14-36) IU/L ALT 15 (<35) IU/L Alkaline Phosphatase 36 L (38-126) U/L Total Protein 7.3 (6.3-8.2) g/dL Albumin 4.3 (3.5-5.0) g/dL Globulin 3.0 (1.7-4.1) g/dL Albumin/Globulin Ratio 1.4 (1.0-2.8) HCG, Quant 534.1 mIU/mL SARS-CoV-2 (PCR) (Negative) Blood Type O Positive 12/05/20 Range/Units 12:13 WBC (4.5-11.0) X10^3/uL RBC (4.0-5.2) X10^6/uL Hgb (12.0-16.0) g/dL Hct (36-46) % MCV (80-100) fL MCH (26-34) PG MCHC (30-36) % RDW (11.6-14.8) % Plt Count (150-400) X10^3/uL Neut % (Auto) (50-75) % Lymph % (Auto) (25-40) % [place] % (Auto) (3-14) % Eos % (Auto) (2-4) % Baso % (Auto) (0-2) % Neut # (Auto) (7137-0446) /uL Lymph # (Auto) (8592-6612) /uL [place] # (Auto) (0-900) /uL Eos # (Auto) (0-450) /uL Baso # (Auto) (0-100) /uL Sodium (137-145) mmol/L Potassium (3.4-5.1) mmol/L Chloride (98-107) mmol/L Carbon Dioxide (22-32) mmol/L BUN (7-17) mg/dL Creatinine (0.52-1.04) mg/dL Estimated GFR (>60) mL/min BUN/Creatinine Ratio (6-22) Glucose (70-100) mg/dL Calcium (8.4-10.2) mg/dL Total Bilirubin (0.2-1.3) mg/dL AST (14-36) IU/L ALT (<35) IU/L Alkaline Phosphatase (38-126) U/L Total Protein (6.3-8.2) g/dL Albumin (3.5-5.0) g/dL Globulin (1.7-4.1) g/dL Albumin/Globulin Ratio (1.0-2.8) HCG, Quant mIU/mL SARS-CoV-2 (PCR) Negative (Negative) Blood Type Point of Care Testing Test Results Positive Urine Dip Bedside Urine Glucose Negative Bedside Urine Bilirubin - Negative Bedside Urine Ketone + 15 Urine Specific [place] 1.030 Bedside Urine Occult Blood - Negative Bedside Urine pH 6 Bedside Urine Protein - Negative Bedside Urine Urobilinogen - Negative Bedside Urine Nitrite - Negative Bedside Urine Leukocytes - Negative Esterase Imaging Data US - OB: Radiologist's Impression: [address] [place] [id number] ReportSigned Patient: Gino Cason#: [id number]: 2000Acct:[id number]/Sex: te of Service: 12/05/20Loc: EDAccession Number: [id number] Procedure: US OB <= 14 weeks fetus Ordering Provider: Katelynn Dupree PROCEDURE: US OB <= 14 WEEKS FETUS INDICATIONS: PAIN, SPOTTING 5 WEEKS POST MEDICAL OUTSIDE/PRIOR DATING DATA: Last menstrual period (LMP): 08/04/2020. LMP-based estimated date of delivery (JAISON): 05/11/2021. First dating scan (date and location): 12/05/2020. Estimated date of delivery (JAISON) from first dating scan: Approximately 07/15 based on gestational sac diameter. TECHNIQUE: Real-time scanning was performed of the fetus and maternal pelvic organs, with image documentation. Endovaginal scanning was also performed to better visualize the uterus. COMPARISON: [facility], , PELVIC COMPLETE, 05/30/2020, 18:04. FINDINGS: Embryo: Intrauterine gestational sac. MGSD measures 2.7 cm. The estimated gestational age 7 weeks 5 days. No pole at this time. A yolk sac is seen. Suspect trace perigestational hemorrhage. Measurement variability in dating: +/- 4 weeks by LMP, +/- 7 days by mean sac diameter (use before 6 weeks gestation if crown-rump length not able to be measured), +/- 5 days by crown-rump length (up to 8 weeks 6 days gestation), +/- 7 days by crown-rump length (up to 13 weeks 6 days gestation). IMPRESSION: 1. Intrauterine gestational sac. No pole at this time. Yolk sac is seen. MGSD gestational age estimate 7 weeks 5 days. Suspect incomplete medical . -Recommend trending beta hCG to resolution. Short-term follow-up OB ultrasound should also be considered. 2. Trace perigestational hemorrhage. Dictated by: Harris Otero M.D. on 12/05/2020 at 12:12 Approved by: Harris Otero M.D. on 12/05/2020 at 12:24 MDM Narrative Medical decision making narrative: The patient is a 20-year-old female who presents 5 weeks after a medication with concern of retained products. Overall she appears well, is nontoxic, is no leukocytosis. Urine shows no signs of infection. Given her history, urine was done which resulted positive. Beta hCG was elevated in the 500s. Ultrasound shows concern for incomplete medication . Thus I spoke with Dr. Blacno regarding the patient, she has me to discharge her from the emergency department so she could be escorted over to her office to get on her schedule, hopefully the next day. Subsequently coronavirus testing was completed and resulted negative. Patient appears well nontoxic throughout her stay in the ER, declines any medication needs for pain or nausea. Patient structure come back to ER for any acute concerns. Patient has no questions or concerns upon discharge states understanding return precautions as well as follow-up care. Was escorted to Dr. Blanco's office by DONNY. <Katelynn Jenkins, DO - Last Filed: 12/06/20 19:08> Lab Data Labs: Lab Results 12/05/20 12/05/20 12/05/20 Range/Units 11:26 11:26 11:26 WBC 6.1 (4.5-11.0) X10^3/uL RBC 4.38 (4.0-5.2) X10^6/uL Hgb 13.4 (12.0-16.0) g/dL Hct 41.1 (36-46) % MCV 93.9 (80-100) fL MCH 30.6 (26-34) PG MCHC 32.6 (30-36) % RDW 13.1 (11.6-14.8) % Plt Count 283 (150-400) X10^3/uL Neut % (Auto) 59.1 (50-75) % Lymph % (Auto) 30.4 (25-40) % [place] % (Auto) 6.2 (3-14) % Eos % (Auto) 3.9 (2-4) % Baso % (Auto) 0.4 (0-2) % Neut # (Auto) 3600 (4735-6676) /uL Lymph # (Auto) 1900 (3808-4926) /uL [place] # (Auto) 400 (0-900) /uL Eos # (Auto) 200 (0-450) /uL Baso # (Auto) 0 (0-100) /uL Sodium 136 L (137-145) mmol/L Potassium 4.1 (3.4-5.1) mmol/L Chloride 105 (98-107) mmol/L Carbon Dioxide 26 (22-32) mmol/L BUN 8 (7-17) mg/dL Creatinine 0.60 (0.52-1.04) mg/dL Estimated GFR > 60.0 (>60) mL/min BUN/Creatinine Ratio 13.3 (6-22) Glucose 79 (70-100) mg/dL Calcium 9.2 (8.4-10.2) mg/dL Total Bilirubin 0.5 (0.2-1.3) mg/dL AST 29 (14-36) IU/L ALT 15 (<35) IU/L Alkaline Phosphatase 36 L (38-126) U/L Total Protein 7.3 (6.3-8.2) g/dL Albumin 4.3 (3.5-5.0) g/dL Globulin 3.0 (1.7-4.1) g/dL Albumin/Globulin Ratio 1.4 (1.0-2.8) HCG, Quant 534.1 mIU/mL SARS-CoV-2 (PCR) (Negative) Blood Type O Positive 12/05/20 Range/Units 12:13 WBC (4.5-11.0) X10^3/uL RBC (4.0-5.2) X10^6/uL Hgb (12.0-16.0) g/dL Hct (36-46) % MCV (80-100) fL MCH (26-34) PG MCHC (30-36) % RDW (11.6-14.8) % Plt Count (150-400) X10^3/uL Neut % (Auto) (50-75) % Lymph % (Auto) (25-40) % [place] % (Auto) (3-14) % Eos % (Auto) (2-4) % Baso % (Auto) (0-2) % Neut # (Auto) (3427-0023) /uL Lymph # (Auto) (0161-5736) /uL [place] # (Auto) (0-900) /uL Eos # (Auto) (0-450) /uL Baso # (Auto) (0-100) /uL Sodium (137-145) mmol/L Potassium (3.4-5.1) mmol/L Chloride (98-107) mmol/L Carbon Dioxide (22-32) mmol/L BUN (7-17) mg/dL Creatinine (0.52-1.04) mg/dL Estimated GFR (>60) mL/min BUN/Creatinine Ratio (6-22) Glucose (70-100) mg/dL Calcium (8.4-10.2) mg/dL Total Bilirubin (0.2-1.3) mg/dL AST (14-36) IU/L ALT (<35) IU/L Alkaline Phosphatase (38-126) U/L Total Protein (6.3-8.2) g/dL Albumin (3.5-5.0) g/dL Globulin (1.7-4.1) g/dL Albumin/Globulin Ratio (1.0-2.8) HCG, Quant mIU/mL SARS-CoV-2 (PCR) Negative (Negative) Blood Type Point of Care Testing Test Results Positive Urine Dip Bedside Urine Glucose Negative Bedside Urine Bilirubin - Negative Bedside Urine Ketone + 15 Urine Specific [place] 1.030 Bedside Urine Occult Blood - Negative Bedside Urine pH 6 Bedside Urine Protein - Negative Bedside Urine Urobilinogen - Negative Bedside Urine Nitrite - Negative Bedside Urine Leukocytes - Negative Esterase Discharge Plan Departure Patient Disposition: Home Clinical Impression: Incomplete Instructions: Therapeutic : Medical Activity Restrictions/Additional Instructions: Thank you for trusting us with your care today As discussed, your ultrasound is concerning for and incomplete As discussed, I spoke with Dr. Blanco. Our staff is going to escort you to her office that today to help get you in for follow-up. Please come back to the emergency department for any acute concerns. I have given you contact information to the [facility] administrative resources associate, who can help you identify a primary care provider in the area as well. Prescriptions: No Action oxycodone-acetaminophen [Percocet] 5-325 mg tablet 1 tab PO Q4-6H PRN (Reason: pain) Qty: 10 RF: 0 Referrals: [facility] [Outside] Leeanne Blanco MD [Physician] - <Katelynn Jenkins DO - Last Filed: 12/06/20 19:08> Cosign ED Attending Cosignature Attestation: I was immediately available in the department for consultation. Documentation has been reviewed. Case was discussed, consultation with OBGYN was obtained and patient is care is transferred to Dr. Blanco.
--- NOTE | 2020-12-05 11:15 | DI.US.S_ITS ---
PROCEDURE: US OB <= 14 WEEKS FETUS INDICATIONS: PAIN, SPOTTING 5 WEEKS POST MEDICAL OUTSIDE/PRIOR DATING DATA: Last menstrual period (LMP): 08/04/2020. LMP-based estimated date of delivery (JAISON): 05/11/2021. First dating scan (date and location): 12/05/2020. Estimated date of delivery (JAISON) from first dating scan: Approximately 07/15 based on gestational sac diameter. TECHNIQUE: Real-time scanning was performed of the fetus and maternal pelvic organs, with image documentation. Endovaginal scanning was also performed to better visualize the uterus. COMPARISON: [facility], , PELVIC COMPLETE, 05/30/2020, 18:04. FINDINGS: Embryo: Intrauterine gestational sac. MGSD measures 2.7 cm. The estimated gestational age 7 weeks 5 days. No pole at this time. A yolk sac is seen. Suspect trace perigestational hemorrhage. Measurement variability in dating: +/- 4 weeks by LMP, +/- 7 days by mean sac diameter (use before 6 weeks gestation if crown-rump length not able to be measured), +/- 5 days by crown-rump length (up to 8 weeks 6 days gestation), +/- 7 days by crown-rump length (up to 13 weeks 6 days gestation). IMPRESSION: 1. Intrauterine gestational sac. No pole at this time. Yolk sac is seen. MGSD gestational age estimate 7 weeks 5 days. Suspect incomplete medical . -Recommend trending beta hCG to resolution. Short-term follow-up OB ultrasound should also be considered. 2. Trace perigestational hemorrhage. Dictated by: Harris Otero M.D. on 12/05/2020 at 12:12 Approved by: Harris Otero M.D. on 12/05/2020 at 12:24
[2020-12-05 11:34] LABS: Add Manual Diff / Slide Review NO; Basophils Absolute Auto 0 /uL (0-100); Basophils Percent Auto 0.4 % (0-2); Eosinophils Absolute Auto 200 /uL (0-450); Eosinophils Percent Auto 3.9 % (2-4); Hematocrit 41.1 % (36-46); Hemoglobin 13.4 g/dL (12.0-16.0); Lymphocytes Absolute Auto 1900 /uL (1100-4500); Lymphocytes Percent Auto 30.4 % (25-40); Mean Corpuscular HGB Conc 32.6 % (30-36); Mean Corpuscular Hemoglobin 30.6 PG (26-34); Mean Corpuscular Volume 93.9 fL (80-100); Monocytes Absolute Auto 400 /uL (0-900); Monocytes Percent Auto 6.2 % (3-14); Neutrophils Absolute Auto 3600 /uL (1500-7000); Neutrophils Percent Auto 59.1 % (50-75); Platelet Count 283 X10^3/uL (150-400); Red Blood Cell Count 4.38 X10^6/uL (4.0-5.2); Red Cell Distribution Width 13.1 % (11.6-14.8); White Blood Cell Count 6.1 X10^3/uL (4.5-11.0)
[2020-12-05 11:46] LABS: Alanine Aminotransferase 15 IU/L (<35); Albumin 4.3 g/dL (3.5-5.0); Albumin Globulin Ratio 1.4 (1.0-2.8); Alkaline Phosphatase 36 U/L (38-126); Aspartate Aminotransferase 29 IU/L (14-36); BUN Creatinine Ratio 13.3 (6-22); Bilirubin Total 0.5 mg/dL (0.2-1.3); Blood Urea Nitrogen 8 mg/dL (7-17); Calcium 9.2 mg/dL (8.4-10.2); Carbon Dioxide 26 mmol/L (22-32); Chloride 105 mmol/L (98-107); Estimated Glomerular Filt Rate > 60.0 mL/min (>60); Glucose 79 mg/dL (70-100); HEMOLYSIS 34 (0-50); Potassium 4.1 mmol/L (3.4-5.1); Sodium 136 mmol/L (137-145); Total Protein 7.3 g/dL (6.3-8.2)
[2020-12-05 12:02] LABS: HCG Quantitative /Beta subunit 534.1 mIU/mL
[2020-12-05 12:32] LABS: COVID19 -Nasal RAPID Negative (Negative)
[2020-12-05 13:17] VITALS: BP 122/71; PULSE 70; O2SAT 100
[2020-12-05 13:22] VITALS: BP 122/71; PULSE 68; RESP 14; O2SAT 100
== END 2020-12-05 13:23 | disposition home or self-care (01) ==
PROVIDERS: Emergency Provider Nurse Practitioner Family
DX: O03.4 Incomplete spontaneous abortion without complication (principal); Z20.822 Contact with and (suspected) exposure to COVID-19
CPT/HCPCS: 36415; 76801; 76817; 80053; 81003; 81025; 84702; 85025; 86900; 86901; 87635; 99283; 99284; C9803

== ENCOUNTER 2020-12-06 06:57 | Day surgery (SDC) | payer OTHER, MEDICAID, SELFPAY ==
--- NOTE | 2020-12-06 | PATH_ITS ---
[facility] Accession Number: [id number] . 01 Material submitted: . product of conception - PRODUCTS OF CONCEPTION . 01 Clinical history: . SUCTION D/C . 02 Diagnosis: Products of Conception: Products of conception identified. MRV 12/11/2020 1035 Local . 02 Electronically signed: . Lois Dalal MD, Pathologist NPI- [id number] . 01 Gross description: . The specimen is received in formalin, labeled products of conception and consists of multiple zhao-pink to red-brown fragments of soft tissue and clotted blood measuring 8.0 x 6.0 x 3.0 cm in aggregate. Candidate chorionic villi are identified. No parts are identified. Ct Mri Technologist sections are submitted in cassettes A1-A3. ([id number]) /MRV 12/07/2020 0937 Local . 02 Pathologist provided ICD-10: O02.1 . 02 CPT . 062562 Performed at: 01 [facility] [address], [place], [place] [id number] MD Zaki Shaffer MD Phone: [phone] Performed at: [address] [facility] [address] [place], [place] [id number] MD Debora Hull MD Phone: [phone]
[2020-12-06 07:12] VITALS: BP 127/81; PULSE 77; RESP 16; TEMP 36.6; O2SAT 100; BMI 29.2
--- NOTE | 2020-12-06 07:25 | SUR.OPER ---
Lithotomy on padded OR bed, head on pillow, arms secured on padded arm boards at <90 degrees abduction. Legs secured in padded yellow fins stirrups.
--- NOTE | 2020-12-06 07:42 | PM.HP.1 ---
History of Present Illness History of Present Illness Date Patient Seen: 12/06/20 Time Patient Seen: 07:43 Chief complaint: SUCTION D&C Narrative: Patient is a 20-year-old 2 para 0 with an incomplete here for a suction D&C. Patient History Medical History (Updated 12/05/20 @ 13:19 by DALTON Santos-) MRSA (methicillin resistant staph aureus) culture positive Surgical History S/P laparoscopic procedure Family & Social History Social History: household members significant other Tobacco & Substance use: Tobacco type cigarettes Smoking Status Current every day smoker alcohol intake frequency a few times a month Substance Use Type marijuana Meds Home Medications and Allergies Allergies Allergy/AdvReac Type Severity Reaction Status Date / Time Pertussis Vaccines Allergy Mild Verified 12/05/20 10:40 [PERTUSSIS VACCINES] Exam Vital Signs (past 8 hours): - 12/06/20 07:12 Temperature 97.9 F Pulse Rate 77 Respiratory Rate 16 Blood Pressure 127/81 Pulse Oximetry 100 Oxygen Delivery Method Room Air Narrative Exam Narrative: HEENT: No thyromegaly, no anterior cervical or supraclavicular lymphadenopathy. Lungs:Clear to auscultation bilaterally, no wheezes. Cardiovascular: Regular rate and rhythm, no murmurs, rubs, or gallops. Abdomen: No scars. No hepatosplenomegaly. No masses palpable. External genitalia: Normal Vagina: Normal Cervix: Normal Bimanual exam: 7 Week size anteverted uterus. Mobile. Rectal: No masses. Assessment & Plan Assessment & Plan narrative: Assessment: 20-year-old 2 para 0 with an incomplete Plan: Suction D&C The risks, benefits, and alternatives to the procedure were explained to the patient. The risks including bleeding, infection, and uterine perforation. She understands these risks and agrees to proceed. A full par Q was held and consent form was signed. COVID-19 COVID-19 status: Negative Result date/Date tested (Pos, Neg/Pending): 12/05/20 Time Spent With Patient Time with patient: less than 15 minutes
--- NOTE | 2020-12-06 07:45 | PM.PREOP ---
Pre-operative Note COVID-19 COVID-19 status: Negative Result date/Date tested (Pos, Neg/Pending): 12/05/20 Interval Note History & Physical reviewed/Exam performed by Physician: Yes Changes to H&P: No H&P completed within 30 days and has changed as indicated here:: 12/06/20
[2020-12-06] MEDS: LACTATED RINGERS 1,000 ML 42 ML IV (08:04)
[2020-12-06] MEDS: CEFAZOLIN 2 GM/100 ML FROZ.PIGGY IV (08:25)
[2020-12-06 08:45] VITALS: BP 116/59; PULSE 92; RESP 18; O2SAT 100
[2020-12-06 08:46] VITALS: BP 119/71; PULSE 92; RESP 22; TEMP 36.4; O2SAT 99
[2020-12-06 08:51] VITALS: BP 120/40; PULSE 72; RESP 12; O2SAT 100
[2020-12-06 09:21] VITALS: BP 106/60; PULSE 66; RESP 20; TEMP 36.2; O2SAT 100
--- NOTE | 2020-12-06 19:25 | PM.GYNOP.1 ---
Operative Date/Time/Diagnoses Date of procedure: 12/06/20 Time of procedure: 09:30 Pre-op diagnosis: Incomplete Post-op diagnosis: same Procedure & Clinicians Procedure: Procedures Operation Date: 12/06/20 07:45 Actual Procedures Side Surgeon gildardo daniel D&C Leeanne Blanco MD Indications: Incomplete Surgeon: Leeanne Blanco Anesthesia Type: General (LMA) Operative Notes Findings: Eight week size anteverted uterus Large amount of products of conception Closure Type: not applicable Specimen(s): other (Products of conception) Estimated blood loss (mL): 50 Blood products transfused: none Procedure in detail: After informed consent was obtained, the patient was taken to the operating room where she was placed in the dorsal supine position. After adequate LMA general anesthesia was achieved, she was placed in the dorsal lithotomy position, and prepped and draped in the usual sterile fashion. A time-out was performed. A bimanual exam was performed which revealed an 8 week size anteverted uterus. A bivalve speculum was placed into the vagina and the anterior lip of the cervix grasped with a single-tooth tenaculum. The cervical os was sequentially dilated to the # 8 Hegar dilator. The # 7 curved plastic curette passed easily into the endometrial cavity. Several passes with suction revealed a large amount of tissue and fluid. The curette was removed. Sharp curettage was performed yielding a moderate amount of tissue. Several more passes with suction revealed tissue on the 1st few passes, and blood on the last 2 passes. The uterus was well contracted. The instruments were removed from the uterus. The single-tooth tenaculum was removed from the anterior lip of the cervix. The bivalve speculum was removed from the vagina. Sponge, lap, and instrument counts were correct x2. The patient tolerated the procedure well, and was taken to PACU in stable condition. Complications: none Post-operative Condition: stable Disposition: PACU Plan for aftercare: Home after recovery
== END 2020-12-06 09:24 | disposition home or self-care (01) ==
PROVIDERS: Referring Provider Obstetrics & Gynecology; Visit Provider Obstetrics & Gynecology
PROC: (CPT 58120; principal; 2020-12-06 07:45)
DX: O03.4 Incomplete spontaneous abortion without complication (principal); F17.210 Nicotine dependence, cigarettes, uncomplicated
CPT/HCPCS: 59812; J0330; J0690; J1100; J1885; J2405; J2704; J3010

== ENCOUNTER → 2021-01-11 14:57 | Outpatient (CLI) | payer OTHER, MEDICAID, SELFPAY ==
--- NOTE | 2021-01-11 14:57 | DI.US.S_ITS ---
PROCEDURE: US PELVIC COMPLETE INDICATIONS: BLEEDING; POSSIBLE RPOC TECHNIQUE: Real-time scanning was performed of the pelvic organs, with image documentation. Additional endovaginal scanning was necessary due to incomplete visualization of the adnexal and endometrial structures by transabdominal scanning. COMPARISON: [facility], US, US PELVIC COMPLETE, 05/30/2020, 18:04. FINDINGS: Uterus: Uterus is normal in size at 7.6 x 4.3 x 5.3 cm. The endometrium measures 11.1 mm in combined thickness and there is a 13 mm isoechoic endometrial mass present with mild vascularity.. Ovaries: Ovaries are normal bilaterally measuring 3.8 x 2.0 x 1.7 cm on the right and 3.6 x 1.8 x 1.6 cm on the left. No adnexal masses seen. Other: No pathologic free abdominal or pelvic fluid. IMPRESSION: 13 mm mildly vascular echogenic central endometrial mass which could represent retained products of conception. Recommend clinical correlation and follow-up. Dictated by: Bean GARDINER Interpreted: Beverly Dailey MD on 01/11/2021 at 16:18 Approved by: Beverly Dailey M.D. on 01/11/2021 at 16:55
== END ==
PROVIDERS: Referring Provider Obstetrics & Gynecology; Visit Provider Obstetrics & Gynecology
DX: O73.1 Retained portions of placenta and membranes, without hemorrhage (principal); R19.09 Other intra-abdominal and pelvic swelling, mass and lump; R10.2 Pelvic and perineal pain
CPT/HCPCS: 76830; 76856

== ENCOUNTER 2021-02-01 08:01 | Day surgery (SDC) | payer OTHER, MEDICAID, SELFPAY ==
[2021-02-01] VITALS (9 sets, daily range): BP systolic 98–126; BP diastolic 55–79; PULSE 45–86; RESP 12–16; TEMP 36.1–36.9; O2SAT 96–100; BMI 27.4
--- NOTE | 2021-02-01 | PATH_ITS ---
[facility] Accession Number: [id number] . 01 Material submitted: . product of conception - PRODUCTS OF CONCEPTION . 02 Diagnosis: Products of Conception: Variably decidualized secretory endometrium. No intact chorinic villi identified; please see comment. No evidence of neoplasm. MRV 02/06/2021 1802 Local . 02 Comment: The specimen is entirely submitted, and numerous deeper levels are examined. The specimen consists predominantly of secretory endometrium with areas of decidual change. A few fragments of tissue with coagulative necrosis show a villiform architecture. This may represent degenerated chorionic villi; however, no definitive viable chorionic villi are seen. If there is clinical suspicion for an extrauterine gestation, correlation with imaging findings and serial serum beta hCG levels may be contributory. . 02 Electronically signed: . Elton Wayne MD, PhD, Pathologist NPI- [id number] . 01 Gross description: . The specimen is received in formalin, labeled products of conception, and consists of multiple zhao-pink fragments of soft tissue measuring 2.5 x 2.0 x 0.5 cm in aggregate. Possible chorionic villi and no parts are identified. The specimen is entirely submitted in cassette A1. ([id number]) /FRR 02/02/2021 1459 Local . 02 Pathologist provided ICD-10: O02.1 . 02 CPT . 010821 Performed at: 01 [facility] [address], [place], [place] [id number] MD Zaki Shaffer MD Phone: [phone] Performed at: 02 [facility] [address] [place], [place] [id number] MD Debora Hull MD Phone: [phone]
[2021-02-01] MEDS: LACTATED RINGERS 1,000 ML 42 ML IV (08:38)
[2021-02-01 09:12] LABS: COVID19 -Nasal RAPID Negative (Negative)
--- NOTE | 2021-02-01 09:23 | P.HP_ITS ---
History of Present Illness History of Present Illness Date Patient Seen: 02/01/21 Time Patient Seen: 09:23 Chief complaint: SUCTION D&C Narrative: Patient is a 20-year-old 2 para 0 with retained products of conception She is here for a suction D&C Patient History Medical History (Updated 01/28/21 @ 07:46 by Leeanne Blanco MD) MRSA (methicillin resistant staph aureus) culture positive Surgical History S/P laparoscopic procedure Family & Social History Social History: household members significant other Tobacco & Substance use: Tobacco type cigarettes Smoking Status Current every day smoker Smoking packs per day 0.5 alcohol intake current alcohol intake frequency a few times a week Substance Use Type marijuana Meds Home Medications and Allergies Home Medications Medication Instructions Recorded Confirmed Type misoprostol 200 mcg tablet 600 mcg PO ONCE #3 tab 01/14/21 01/28/21 Rx Allergies Allergy/AdvReac Type Severity Reaction Status Date / Time Pertussis Vaccines Allergy Mild Verified 02/01/21 08:39 [PERTUSSIS VACCINES] Exam Vital Signs (past 8 hours): - 02/01/21 08:40 Temperature 98.4 F Pulse Rate 86 Respiratory Rate 16 Blood Pressure 126/79 Pulse Oximetry 100 Oxygen Delivery Method Room Air Oxygen Flow Rate 0 Narrative Exam Narrative: HEENT: No thyromegaly, no anterior cervical or supraclavicular lymphadenopathy. Lungs:Clear to auscultation bilaterally, no wheezes. Cardiovascular: Regular rate and rhythm, no murmurs, rubs, or gallops. Abdomen: No scars. No hepatosplenomegaly. No masses palpable. External genitalia: Normal Vagina: Normal Cervix: Normal Bimanual exam: 7 Week size uterus. Mobile. Ultrasound: Small echogenic focus in the lower uterine segment consistent retained products of conception Objective Labs Labs: Laboratory Results - last 24 hr 02/01/21 08:53 SARS-CoV-2 (PCR) Negative Assessment & Plan Assessment & Plan narrative: Assessment: 20-year-old 2 para 0 with retained products conception Plan: Suction D&C The risks, benefits, and alternatives to the procedure were explained to the pa tierosalinda. The risks including bleeding, infection, and uterine perforation. She understands these risks and agrees to proceed. A full par Q was held and consent form was signed. COVID-19 COVID-19 status: Negative Result date/Date tested (Pos, Neg/Pending): 02/01/21 Time Spent With Patient Time with patient: less than 15 minutes
--- NOTE | 2021-02-01 09:24 | PM.PREOP ---
Pre-operative Note COVID-19 COVID-19 status: Negative Result date/Date tested (Pos, Neg/Pending): 02/01/21 Interval Note History & Physical reviewed/Exam performed by Physician: Yes Changes to H&P: No H&P completed within 30 days and has changed as indicated here:: 02/01/21
--- NOTE | 2021-02-01 09:31 | SUR.OPER ---
Lithotomy on padded OR bed, head on pillow, arms secured on padded arm boards at <90 degrees abduction. Legs secured in padded yellow fins stirrups.
--- NOTE | 2021-02-01 10:02 | PM.GYNOP.1 ---
Operative Date/Time/Diagnoses Date of procedure: 02/01/21 Time of procedure: 10:02 Pre-op diagnosis: Retained products conception Post-op diagnosis: same Procedure & Clinicians Procedure: Procedures Operation Date: 02/01/21 09:45 Actual Procedures Side Surgeon p Suction Dilation and Curettage Leeanne Blanco MD Indications: Retained products conception Surgeon: Leeanne Blanco Anesthesia Type: General (LMA) Operative Notes Findings: Seven week size anteverted uterus Small amount of products conception Closure Type: not applicable Specimen(s): products of conception Estimated blood loss (mL): 20 Blood products transfused: none Procedure in detail: After informed consent was obtained, the patient was taken to the operating room where she was placed in the dorsal supine position. After adequate LMA general anesthesia was achieved, she was placed in the dorsal lithotomy position, and prepped and draped in the usual sterile fashion. A time-out was performed. A bivalve speculum was placed into the vagina and the anterior lip of the cervix grasped with a single-tooth tenaculum. The cervical os was sequentially dilated to the # 8 Hegar dilator. The # 7 curved plastic curette passed easily into the endometrial cavity. Several passes with suction revealed products of conception consistent with membranes and placenta. The plastic curette was removed. Gentle sharp curettage was performed yielding small amount of products conception. Several more passes with suction revealed blood only. The instruments were removed from the uterus. The single-tooth tenaculum was removed from the anterior lip of the cervix. The bivalve speculum was removed from the vagina. Sponge, lap, and instrument counts were correct x2. The patient tolerated the procedure well, and was taken to PACU in stable condition. Complications: none Post-operative Condition: stable Disposition: PACU Plan for aftercare: Home after recovery
[2021-02-01] MEDS: OXYCODONE/ACETAMINOPHEN 5/325 TABLET 1 TAB PO (10:33)
== END 2021-02-01 11:08 | disposition home or self-care (01) ==
PROVIDERS: Referring Provider Obstetrics & Gynecology; Visit Provider Obstetrics & Gynecology
PROC: (CPT 58120; principal; 2021-02-01 09:45)
DX: O03.4 Incomplete spontaneous abortion without complication (principal); Z3A.01 Less than 8 weeks gestation of pregnancy; F17.210 Nicotine dependence, cigarettes, uncomplicated; Z22.322 Carrier or suspected carrier of Methicillin resistant Staphylococcus aureus
CPT/HCPCS: 59812; 87635; J1100; J1885; J2250; J2405; J2704; J3010

== ENCOUNTER 2021-11-08 17:53 | Emergency (ER) | payer OTHER, MEDICAID, SELFPAY ==
[2021-11-08 18:27] VITALS: BP 135/91; PULSE 67; RESP 18; TEMP 36.9; O2SAT 99; BMI 29.2
--- NOTE | 2021-11-08 21:05 | DI.US.S_ITS ---
PROCEDURE: US PELVIC COMPLETE INDICATIONS: PAIN; CHECK IUD PLACEMENT TECHNIQUE: Real-time scanning was performed of the pelvic organs, with image documentation. Additional endovaginal scanning was necessary due to incomplete visualization of the adnexal and endometrial structures by transabdominal scanning. COMPARISON: [facility], US, US PELVIC COMPLETE, 01/11/2021, 15:04. FINDINGS: Uterus: Uterus is anteverted and normal in size at 8.3 x 3.7 x 4.5 cm. The myometrium is homogeneous. The endometrium measures 6 mm combined thickness. An intrauterine device is identified within the endometrial cavity and appears appropriately positioned. Ovaries: The right ovary measures 4.4 x 2.3 x 3.9 cm. The left ovary measures 4.5 x 1.5 x 1.6 cm. There is a nonvascular complicated right ovarian cyst measuring 2.5 cm. No suspicious ovarian or adnexal mass lesions. Other: No pathologic free abdominal or pelvic fluid. IMPRESSION: 1.An intrauterine device is in place and appears to be appropriately positioned within the endometrial cavity. 2. A 2.5 cm complicated right ovarian cyst. Consider follow-up pelvic ultrasound in 6-12 weeks to document stability versus resolution. We strive to produce accurate, complete, and clear reports of imaging services. To assist us in improving patient care, this report was composed using standard report templates and voice recognition software. Therefore, it may contain abnormal punctuation, insertions and/or omissions. Occasional wrong-word or sound-alike substitutions may occur. Though we review the report and make efforts to correct it, we do recommend that the report be read carefully in proper context to recognize any text inaccuracies. Dictated by: Alfredito Bernabe M.D. on 11/08/2021 at 22:01 Approved by: Alfredito Bernabe M.D. on 11/08/2021 at 22:03
[2021-11-08 22:12] VITALS: BP 108/63; PULSE 62; RESP 20; O2SAT 100
[2021-11-09 00:22] VITALS: BP 136/68; PULSE 56; RESP 18; O2SAT 100
--- NOTE | 2021-11-09 06:21 | ED_ITS ---
HPI - Female Genitourinary General Chief complaint: Urogenital-Female Stated complaint: IUD Issues Time Seen by Provider: 11/08/21 21:18 Source: patient Mode of arrival: Family Vehicle History of Present Illness HPI Narrative: 21-year-old female smoker without any significant chronic medical problems presents with a chief complaint of a sudden onset midline lower pelvic pain that started when bending over, lifting a heavy object earlier today. She states that she has a longstanding history of pelvic issues and this is causing her concerned that her IUD may have shifted. Her pain is worse with motion and improves with rest. She denies any vaginal bleeding. She is not dizzy nor weak or lightheaded has had no fever or chills. She denies dysuria, frequency or urgency. She states that she has been having significant pelvic issues with multiple surgeries over the past year. She had this IUD placed in July and has been having some issues ever since. She saw her provider a few days ago and had an extensive workup including pelvic exam with multiple swabs. She has antibiotics waiting for her at her pharmacy. Related Data Previous Rx's Medication Instructions Recorded oxycodone 5 mg tablet 5 mg PO Q4H PRN #10 tab 02/01/21 fluconazole 150 mg tablet 150 mg PO Q3D #2 tab 11/09/21 Allergies Allergy/AdvReac Type Severity Reaction Status Date / Time Pertussis Vaccines Allergy Mild Verified 11/08/21 18:32 [PERTUSSIS VACCINES] Review of Systems Review of Systems Narrative: GENERAL: Denies chills, fatigue, malaise, fever, sweats. HEENT: Denies sinus pain, ear pain, sore throat, difficulty swallowing, dizziness. RESPIRATORY: Denies dyspnea, cough, wheezing, hemoptysis, sputum. CARDIOVASCULAR: Denies chest pain, palpitations, orthopnea, edema, GASTROINTESTINAL: Denies nausea, vomiting, abdominal pain, diarrhea, constipation, melena. : See HPI MUSCULOSKELETAL: denies weakness, joint pain, or bony pain SKIN: Denies rash, skin lesions, or other NEUROLOGIC: Denies weakness, headache, numbness, change in speech, confusion, seizures, incoordination. PSYCHIATRIC: No concerning psychosocial issues. 12 point review of systems is negative except for those stated above Patient History Medical History MRSA (methicillin resistant staph aureus) culture positive Surgical History S/P laparoscopic procedure tobacco type: vaping alcohol intake frequency: a few times a week Substance Use Type: marijuana Exam Narrative Exam Narrative: GEN: AOx3 and in mild distress EYES: Pupils are equal, round, and reactive to light and accommodation. Extraoccular muscles are intact bilaterally. There is no subconjunctival hemorrhage or exudate. CHEST: Lungs are clear to auscultation bilaterally and free of wheezes, rales, or rhonchi. Heart rate is regular rhythm, there are no murmurs, clicks, rubs, or gallops. There is no chest wall tenderness. ABD: Abdomen is soft with tenderness over the suprapubic region There is no guarding or rebound. Bowel sounds are normal in all 4 quadrants. There is no mass or organomegaly. PELVIC: Minimal cervical discharge, IUD strings are noted, IUD easily removed, no bleeding noted. Perform with patient's permission and female nursing spiral winding machine helper at bedside EXT: Full painless ROM of all extremities with no loss of sensation or strength. SKIN: Warm, pink, and dry. No erythema or rash Initial Vital Signs Initial Vital Signs: Vital Signs Temperature 98.4 F 11/08/21 18:27 Pulse Rate 67 11/08/21 18:27 Respiratory Rate 18 11/08/21 18:27 Blood Pressure 135/91 H 11/08/21 18:27 Pulse Oximetry 99 11/08/21 18:27 Course Vital Signs Vital signs: Vital Signs - 8 hr 11/09/21 00:22 Pulse Rate 56 L Respiratory Rate 18 Blood Pressure 136/68 Pulse Oximetry 100 MDM - Female Genitourinary Imaging Data US - SHUTTLE HAND: Radiologist's Impression: Launch?[address] [address] Ultrasound Report Signed Patient: Leonarda Cason MR#: [id number] : 2000 Acct:[id number] Age/Sex: 21 / F Date of Service: 11/08/21 Loc: ED Accession Number: [id number] ?? Procedure: US pelvic complete Ordering Provider: Harvey Mays D.O. PROCEDURE:? US PELVIC COMPLETE ? INDICATIONS:? PAIN; CHECK IUD PLACEMENT ? TECHNIQUE:? Real-time scanning was performed of the pelvic organs, with image documentatio n.? Additional endovaginal scanning was necessary due to incomplete visualization of the adnexal and endometrial structures by transabdominal scanning.? ? COMPARISON:? [facility], , PELVIC COMPLETE, 01/11/2021, 15:04. ? FINDINGS:? Uterus:? Uterus is anteverted and normal in size at 8.3 x 3.7 x 4.5 cm. The myometrium is homogeneous. ? The endometrium measures 6 mm combined thickness.? An intrauterine device is identified within the endometrial cavity and appears appropriately positioned. ? Ovaries:? The right ovary measures 4.4 x 2.3 x 3.9 cm. The left ovary measures 4.5 x 1.5 x 1.6 cm.? There is a nonvascular complicated right ovarian cyst measuring 2.5 cm.? No suspicious ovarian or adnexal mass lesions. ? Other:? No pathologic free abdominal or pelvic fluid. ? ? IMPRESSION:? ? 1.An intrauterine device is in place and appears to be appropriately positioned within the endometrial cavity. ? 2. A 2.5 cm complicated right ovarian cyst.? Consider follow-up pelvic ultrasound in 6-12 weeks to document stability versus resolution.? ? ? We strive to produce accurate, complete, and clear reports of imaging services. To assist us in improving patient care, this report was composed using standard report templates and voice recognition software. Therefore, it may contain abnormal punctuation, insertions and/or omissions. Occasional wrong-word or sound-alike substitutions may occur. Though we review the report and make efforts to correct it, we do recommend that the report be read carefully in proper context to recognize any text inaccuracies. ? ? Dictated by: Alfredito Bernabe M.D. on 11/08/2021 at 22:01 ? ? Approved by: Alfredito Bernabe M.D. on 11/08/2021 at 22:03 ? [facility] Narrative Medical decision making narrative: 21F with a sudden onset midline lower pelvic pain and a near complete resolution of symptoms upon removal of IUD. She did have some discharge and after discussion stated she would prefer to leaf size picker the prescriptions later this morning as opposed to receiving those medications here. We did discuss the slight risk of delaying her antibiotic treatment. She understands and is willing to assume this risk. She has had her pain well controlled, has a reassuring physical exam and ultrasound. Return precautions discussed and questions have been answered to her apparent satisfaction Discharge Plan Departure Patient Disposition: Home Clinical Impression: Pelvic pain Instructions: DI for Pelvic Pain Activity Restrictions/Additional Instructions: *You have been diagnosed with [pelvic pain, likely due to IUD. *What to do: *Please continue to take your regular medications as directed. [x ] New medication prescriptions sent to your pharmacy: [[facility] in [place] ] [ ] New medication written as a paper prescription [ ] No new medications given *Please follow up with your primary care provider in 2-3 days, call for an appointment. Let them know you were seen in the Emergency Department and that we ask that you be seen in follow up. We will electronically transmit a record of today's note if your PCP is in our system *If you do not have a primary care provider please contact the [facility] Resource line at [phone]. They will ask some questions about your medical history and help get you set up with a doctor in the community. *Return to Emergency Department if you should have any new, worsening or c oncerning symptoms, such as [fever greater than 101 F, shaking chills, worsening pain, persistent vomiting or other bothersome symptoms] Prescriptions: New fluconazole 150 mg tablet 150 mg PO Q3D Qty: 2 0RF Rx Instructions: may repeat second dose 72 hrs after first dose if symptoms persist No Action oxycodone 5 mg tablet 5 mg PO Q4H PRN (Reason: pain) Qty: 10 0RF
== END 2021-11-09 00:23 | disposition home or self-care (01) ==
PROVIDERS: Emergency Provider Emergency Medicine
DX: R10.2 Pelvic and perineal pain (principal); F17.290 Nicotine dependence, other tobacco product, uncomplicated; Z30.432 Encounter for removal of intrauterine contraceptive device
CPT/HCPCS: 58301; 76830; 76856; 99283

== ENCOUNTER → 2022-11-04 13:45 | Outpatient (CLI) | payer OTHER, MEDICAID, SELFPAY ==
[2022-11-04 14:43] LABS: Influenza A - CEPHEID Flu A NEGATIVE (NEGATIVE); Influenza B - CEPHEID Flu B NEGATIVE (NEGATIVE); Respiratory Syncytial Virus Negative (Negative)
[2022-11-04 14:44] LABS: COVID-19 CEPHEID 4-PLEX PCR Negative (Negative)
== END ==
PROVIDERS: Visit Provider Registered Nurse
DX: J02.9 Acute pharyngitis, unspecified (principal); R05.1 Acute cough; Z20.822 Contact with and (suspected) exposure to COVID-19
CPT/HCPCS: 0241U; 87070; 87880

== ENCOUNTER → 2025-01-25 10:51 | Outpatient (CLI) | payer OTHER, SELFPAY ==
[2025-01-25 12:01] LABS: COVID-19 CEPHEID 4-PLEX PCR Negative (Negative); Influenza A - CEPHEID Flu A NEGATIVE (NEGATIVE); Influenza B - CEPHEID Flu B NEGATIVE (NEGATIVE); Respiratory Syncytial Virus Negative (Negative)
== END ==
PROVIDERS: Visit Provider Physician Assistant
DX: J02.9 Acute pharyngitis, unspecified (principal); R05.1 Acute cough
CPT/HCPCS: 0241U; 87070